=== PATIENT | female | born 1965 | race Caucasian/White ===

== ENCOUNTER 2018-03-13 14:36 | Emergency (ER) | END 2018-03-13 16:27 | disposition home or self-care (01) ==

== ENCOUNTER 2018-12-25 09:59 | Emergency (ER) | payer MEDICAID, OTHER ==
[~2018-12-25] VITALS: Ht 160 cm; Wt 66.6 kg
[~2018-12-25 09:59] MED LIST: ACET500C5 PO; BUTA1CAP38 PO; LORATADINE; NAPR-985 PO; OMEP40CA3 PO
[2018-12-25 10:02] VITALS: Ht 160 cm; Wt 66.6 kg
[2018-12-25] MEDS ORDERED: ONDANSETRON 4 MG INJ IV STA (10:19)
[2018-12-25] MEDS ORDERED: KETOROLAC 30 MG INJ IV STA (10:19)
[2018-12-25] MEDS ORDERED: SOD CHLORIDE 0.9% 1,000 ML IV STA (10:19)
[2018-12-25 11:34] VITALS: BP 159/72; PULSE 55; RESP 17
== END 2018-12-25 11:34 | disposition home or self-care (01) ==
LOC: FTE 09:59
DX: R51 Headache (principal); E11.9 Type 2 diabetes mellitus without complications; R11.0 Nausea
CPT/HCPCS: 81003; 96361; 96374; 96375; 99284; J1885; J2405; J7030